=== PATIENT | male | born 1960 | race Caucasian/White ===

== ENCOUNTER → 2024-11-01 | Day surgery (SDC) | payer OTHER ==
[~2024-11-01] MED LIST: EPHEDRINE SULF 50 MG/ML VIAL ONE; FENTANYL CITR 100 MCG/2 ML ONE; HYDROCODONE/APAP 10/325 TAB PO ONE; LIDOCAINE 1% MPF 5 ML VIAL ONE; MIDAZOLAM HCL 2 MG/2 ML INJ ONE; ROCURONIUM 50 MG/5 ML VIAL IV ONE; Ringers Lactate 1,000 ML IV ONE
[2024-11-01] MEDS: NA CHLORIDE 0.9% 1,000 ML ONE (07:30)
[2024-11-01] MEDS: CEFAZOLIN SODIUM 2 GM/VIAL ONE (09:00)
[2024-11-01] MEDS: LIDOCAINE HCL/EPINEPHRINE 20 ML MDV ONE (09:07)
--- NOTE | 2024-11-01 10:19 | P.OP ---
Preoperative diagnosis: RIGHT Inguinal Hernia Postoperative diagnosis: RIGHT Inguinal Hernia Primary procedure: Open RIGHT Inguinal Hernia Repair with mesh Anesthesia: GETA + Local Estimated blood loss: <10cc Specimen: Hernia Sack Findings: Large hernia sack with large amount of omentum, stuck to scrotal fascia Complications: None Implants: Bard Large Perfix Plug and Patch Transferred to: Recovery Room Condition: Good
--- NOTE | 2024-11-01 11:07 | OP ---
Date of Procedure: 11/01/2024 Surgeon: Andre Nicole MD, Preoperative Diagnosis: Right inguinal hernia. Postoperative Diagnosis: Right inguinal hernia. Procedure Performed: Right inguinal hernia with mesh. Anesthesia: General endotracheal plus local, 1% lidocaine with epinephrine. Estimated Blood Loss: Less than 10 cc. Specimen: Hernia sac. Findings: Large hernia sac with the large amount of omentum completely contained and firmly adhesed to the area. The hernia sac was attached to the scrotal fascia as well and compressing the testicle on the right side. In addition, the external oblique aponeurosis was destroyed by the hernia defect with pooching through an obvious hole in the external oblique aponeurosis. In addition, his bladder was also partially contained on the medial aspect. Complications: None. Implants: Bard large PerFix plug and patch hernia repair system. Disposition: Patient was transferred to recovery room in good condition. Procedure In Detail: After informed consent was obtained, patient was brought to the operating room, prepped and draped in the usual sterile fashion. After adequate anesthesia was achieved, I made a l inear incision down the inguinal region on the right side down to subcutaneous tissues using a 15 rodrigo de, dissected down through Camper's fat and Lei's fascia to expose the residual external oblique a poneurosis which was completely pulled lateral medially away from the large hernia defect which was p rotruding through this area. At this point, I encircled the hernia sac and spermatic cord structures and dissected them free. They extended all the way into the scrotum and required delivery of the te sticle into the field to remove this in its entirety to free the hernia sac from the surrounding tiss ues. After the hernia sac was freed from the scrotal contents, it was pulled back into the visual fi eld and the testicle was returned to the normal anatomic position with gentle traction. At this poin t, I dissected the hernia sac free from the spermatic cord structures using a combination of blunt di ssection, electrocautery, ultimately removing the hernia sac down and transecting it after removing t he omentum from the significant omental attachments and the bladder from the medial aspect using pred ominantly blunt dissection. The hernia sac was ligated and sewn closed using a 3-0 Vicryl suture and returned to the preperitoneal space and then digitized the preperitoneal space to allow for deployme nt of a large Bard PerFix plug in this area. The plug was then deployed in the preperitoneal space a nd secured circumferentially around using 2-0 PDS sutures around the circumferential edge of this wit h good approximation of tissues. I then irrigated the area. No suction was available during the charline e, and as such, I used laparotomy pads to dry up all effluent, at this point. I then proceeded to si ze the patch appropriately, secured it to the pubic tubercle, medial aspect of the medial and lateral shelving edge of the internal oblique and the undersurface of the inguinal ligament circumferentiall y around using 2-0 PDS suture in an interrupted fashion. I then partially reapproximated the externa l oblique aponeurosis. However, it was thin and alveolar and difficult to reapproximate, at this poi nt, due to significant defect in this area. At this point, Camper's fat and Lei's fascia were jaiden sed over the top using interrupted 3-0 Vicryl sutures and deep dermal plane was also closed with 3-0 Vicryl sutures. Skin was closed with 4-0 Monocryl in a running fashion. Dermabond was placed over top. The patient tolerated the procedure without incident or complication and transferred to PACU in good condition. All counts were correct at the end of the case. KAI/TAYO Voice ID: [id number] Report ID: [id number]
[2024-11-01] MEDS: HYDROCODONE/APAP 10/325 TAB ONE (12:10)
[2024-11-01 15:44] VITALS: TEMP 97; O2SAT 99
[2024-11-01 15:47] VITALS: BP 125/66
== END | disposition home or self-care (01) ==
LOC: OR 06:56
PROVIDERS: ATTEND Surgery
PROC: 0YU50JZ Supplement Right Inguinal Region with Synthetic Substitute, Open Approach (ICD-10-PCS; principal; 2024-11-01 08:45)
DX: K40.90 Unilateral inguinal hernia, without obstruction or gangrene, not specified as recurrent (principal)
CPT/HCPCS: 82947 ×2; 88302; 49505; J2704; J2003; J2250; J3010; J7120; J7030